=== PATIENT | male | born 1960 | race Two or more races ===

== ENCOUNTER 2017-08-15 20:14 | Emergency (ER) | payer OTHER ==
[2017-08-15 20:21] VITALS: BP 135/91; PULSE 68; RESP 18; TEMP 97.5; O2SAT 95
[2017-08-15] MEDS ORDERED: IBUPROFEN 800 MG TAB PO ONE (20:29)
--- NOTE | 2017-08-15 20:31 | EDPHY ---
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 He was walking down some icy steps when he slipped and fell back onto the steps. He landed on his left side. He states that he reggie his elbow which caused pain in his shoulder on the left. He also states that he strained his neck but did not hit his head. He has very mild lateral left trapezius pain. He also has some pain in his left hip. He states that these are not very concerning to him and he does not think he broke anything but would like to get an x-ray of his shoulder. He has normal range of motion in his shoulder and arm. He did not hit his head and did not lose consciousness. REVIEW OF SYSTEMS: Constitutional: denies: chills, fever, recent illness, recent injury EENTM: denies: blurred vision, double vision, nose congestion Respiratory: denies: cough, shortness of breath Cardiac: denies: chest pain, irregular heart rate, lightheadedness, palpitations Gastrointestinal/Abdominal: denies: abdominal pain, diarrhea, nausea, vomiting, blood streaked stools Genitourinary: denies: dysuria, frequency, hematuria, pain Musculoskeletal: See HPI Skin: denies: lesions, rash, jaundice, bruising Neurological: denies: headache, numbness, paresthesia, tingling, dizziness, weakness Hematologic/Lymphatic: denies: blood clots, easy bleeding, easy bruising Immunologic/allergic: denies: HIV/AIDS, transplant EXAM: GENERAL: Well-appearing, well-nourished and in no acute distress. HEAD: Atraumatic, normocephalic. EYES: Pupils equal round and reactive to light, extraocular movements intact, sclera anicteric, conjunctiva are normal. ENT: TMs normal, nares patent, oropharynx clear without exudates. Moist mucous membranes. NECK: No bony tenderness, minimal pain over left trapezius. Normal range of motion, supple without lymphadenopathy or JVD. LUNGS: Breath sounds clear to auscultation bilaterally and equal. No wheezes rales or rhonchi. HEART: Regular rate and rhythm without murmurs, rubs or gallops. ABDOMEN: Soft, nontender, normoactive bowel sounds. No guarding, no rebound. No masses appreciated. BACK: No CVA tenderness, no spinal tenderness, step-offs or deformities EXTREMITIES: Left shoulder pain, no deformity or swelling. No clavicular tenderness. NEUROLOGICAL: Cranial nerves II through XII grossly intact. Normal speech, normal gait. 5/5 strength, normal movement in all extremities, normal sensation PSYCH: Normal mood, normal affect. SKIN: Warm, dry, normal turgor, no visible rashes or lesions. Source: Patient Exam Limitations: No limitations - Personal History Current Tetanus/Diphtheria Vaccine: Yes Current Tetanus Diphtheria and Acellular Pertussis (TDAP): Yes - Medical/Surgical History Hx Asthma: No Hx Chronic Respiratory Disease: No Hx Diabetes: Yes Hx Cardiac Disease: No Hx Renal Disease: No Hx Cirrhosis: No Hx Alcoholism: No Hx HIV/AIDS: No Hx Splenectomy or Spleen Trauma: No Other PMH: HTN - Family History Significant Family History: No pertinent family hx - Social History Smoking Status: Never smoked Alcohol Use: Sober Drug Use: None Constitutional: Initial Vital Signs Temperature (C) 36.4 C 08/15/17 20:19 Heart Rate 68 08/15/17 20:19 Respiratory Rate 18 08/15/17 20:19 Blood Pressure 135/91 H 08/15/17 20:19 O2 Sat (%) 95 08/15/17 20:19 O2 Delivery Mode Room Air Allergies/Adverse Reactions: No Known Allergies Allergy (Unverified 08/15/17 20:58) Home Medications: Medication Instructions Recorded Hydrochlorothiazide 12.5 mg PO 08/15/17 Metaxalone [Skelaxin 800 mg (*)] 800 mg PO TID PRN #12 tab 08/15/17 Simvastatin 20 mg PO 08/15/17 metFORMIN HCL [Metformin HCl ER] 1,000 mg PO 08/15/17 Medical Decision Making - Diagnostics Imaging: Discussed imaging studies w/ teacher physically impaired Radiologist ED Course/Re-evaluation: Patient is refusing any narcotics. I will treat him with ibuprofen. We will obtain x-rays of his shoulder. He declines further imaging. 8:50 p.m. I discussed the case with the radiology and with the patient. His difficult to tell if he has a chip fracture verses calcified tendinopathy. I will place him in a sling and have her follow up with Orthopedics likely for an MRI. Patient and understand agree with this plan. They declined further workup or imaging at this time. They decline narcotic pain medications. They will stay with ibuprofen and I will prescribe Skelaxin. Differential Diagnosis: Partial list of the Differential diagnosis considered include but were not limited to; muscle strain, shoulder the fracture, AC separation, calcific tendinitis, bursitis and although unlikely based on the history and physical exam, I also considered elbow fracture, neck injury. I discussed these differential diagnoses and the plan with the patient as well as the usual and expected course. The patient understands that the diagnosis is provisional and that in medicine we are not always correct and that further workup is often warranted. Usual and customary warnings were given. All of the patient's questions were answered. The patient was instructed to return to the emergency department should the symptoms at all worsen or return, otherwise to followup with the physician as we discussed. - Data Points Medications Given: Discontinued Medications Ibuprofen (Motrin) 800 mg PO EDNOW ONE Stop: 08/15/17 20:30 Last Admin: 08/15/17 20:34 Dose: 800 mg Departure - Departure Disposition: Home, Routine, Self-Care Clinical Impression: Left shoulder pain Qualifiers: Chronicity: acute Qualified Code(s): M25.512 - Pain in left shoulder Condition: Fair Instructions: Shoulder Pain (ED) Additional Instructions: Follow-up with Orthopedics for repeat evaluation and possibly MRI. Follow up with [facility]. I have also listed our orthopedist who you may see if you prefer. Referrals: YVONNE MELENDREZ [Other] - As per Instructions Ralph Lopez MD [Medical Doctor] - 5-7 days, call for appt. Stand Alone Forms: Work Limited Duty Prescriptions: Metaxalone [Skelaxin 800 mg (*)] 800 mg PO TID PRN #12 tab PRN Reason: Spasms
== END 2017-08-15 21:10 | disposition home or self-care (01) ==
DX: S49.92XA Unspecified injury of left shoulder and upper arm, initial encounter (principal); I10 Essential (primary) hypertension; E11.9 Type 2 diabetes mellitus without complications; Z79.84 Long term (current) use of oral hypoglycemic drugs; W10.9XXA Fall (on) (from) unspecified stairs and steps, initial encounter; Y93.01 Activity, walking, marching and hiking